=== PATIENT | female | born 1985 | race Caucasian/White ===

== ENCOUNTER 2022-06-06 22:50 | Emergency (ER) | payer SELFPAY ==
[~2022-06-06] VITALS: Ht 165.1 cm; Wt 71.2 kg
[2022-06-06 23:03] VITALS: BP 116/69
--- NOTE | 2022-06-06 23:06 | NUR ---
PT TO A/W EVALUATION IN LOBBY
--- NOTE | 2022-06-06 23:15 | NUR ---
PT EVALUATED BY DR. ZHANG IN TRIAGE
[2022-06-06] MEDS ORDERED: IBUPROFEN 800 MG TAB PO ONE (23:20)
--- NOTE | 2022-06-06 23:36 | NUR ---
Patient discharged with v/s stable. Written and verbal after care instructions given and explained. Patient verbalized understanding. Ambulatory with steady gait. All questions addressed prior to discharge. Advised to follow up with PMD.
== END 2022-06-06 23:36 | disposition home or self-care (01) ==
LOC: MED 22:50
DX: R51.9 Headache, unspecified (principal)
CPT/HCPCS: 81025; 99282